=== PATIENT | male | born 1945 | race Caucasian/White ===

== ENCOUNTER 2021-06-10 10:31 | Emergency (ER) | payer OTHER ==
[2021-06-10] MEDS ORDERED: FENTANYL CITR 100 MCG/2 ML ONE (11:23)
--- NOTE | 2021-06-10 12:17 | RAD REPORT ---
EXAM DESCRIPTION: RAD - Chest Single View - 06/10/2021 11:34 am CLINICAL HISTORY: edema COMPARISON: No comparisons FINDINGS: Lines: None. Lungs: No evidence of edema or pneumonia. Pleural: No significant pleural effusions or pneumothorax. Cardiac: The heart size is within normal limits. Bones: No acute fractures. Other: IMPRESSION: No acute cardiopulmonary disease.
--- NOTE | 2021-06-10 12:28 | RAD REPORT ---
EXAM DESCRIPTION: USExtremity Venous Uni Ltd06/10/2021 12:17 pm CLINICAL HISTORY: Right leg pain and swelling. COMPARISON: None. FINDINGS: Right common femoral, superficial femoral, popliteal and right posterior tibial veins are compressible and demonstrate augmentation. Doppler demonstrates good flow. 4.3 x 2 centimeter right inguinal lymph node IMPRESSION: No evidence of deep venous thrombosis involving the right lower extremity. 4.3 x 2 centimeter right inguinal lymph node probably reactive in nature. Follow up ultrasound in 1 m [facility] recommended
[2021-06-10 12:35] LABS: Absolute Lymphocytes (CBC) 2.9 K/uL (0.7-4.9); Basophils % 1.3 % (0-1.3); Hematocrit 36.7 % (39.6-49.0); Lymphocytes % 26.4 % (15.3-44.8); MPV 8.3 fL (7.6-11.3); RBC Red Blood Cell Count 4.53 M/uL (4.33-5.43)
[2021-06-10 12:39] LABS: Protime INR 1.08
--- NOTE | 2021-06-10 12:46 | RAD REPORT ---
EXAM DESCRIPTION: US - Lower Extremity Artery Uni Ltd - 06/10/2021 12:18 pm CLINICAL HISTORY: Leg pain COMPARISON: None FINDINGS: The right common femoral arterial waveform triphasic. The right superficial femoral arterial waveform biphasic. Right popliteal arterial waveform triphasic. The posterior tibial and dorsalis pedis arteries demonstrate monophasic waveform. IMPRESSION: Mild to moderate very distal arterial disease right lower extremity
[2021-06-10 12:55] LABS: ALT/SGPT 39 U/L (12-78); AST/SGOT 17 U/L (15-37); Alkaline Phosphatase 309 U/L (45-117); BUN Blood Urea Nitrogen 6 mg/dL (7-18); Bicarbonate 28 mmol/L (21-32); Bilirubin Direct 0.2 mg/dL (0-0.2); Bilirubin Total 0.8 mg/dL (0.2-1.0); Glucose Level 95 mg/dL (74-106); Magnesium 2.2 mg/dL (1.8-2.4); NT PRO-BNP 70 pg/mL (<125); Potassium 4.2 mmol/L (3.5-5.1); Protein, Total 7.4 g/dL (6.4-8.2); Sodium Level 140 mmol/L (136-145); Troponin (Emerg Dept Use Only) < 0.02 ng/mL (0.0-0.045)
[2021-06-10] MEDS ORDERED: VANCOMYCIN 1 GM in NA CHLORIDE 0.9% 250 ML IVPB ONE (14:00)
[2021-06-10] MEDS ORDERED: PIPERACIL/TAZO 3.375 GM VIAL IV ONE (15:57)
[2021-06-10] MEDS ORDERED: NA CHLORIDE 0.9% 100 ML ONE (15:58)
--- NOTE | 2021-06-10 16:14 | ER ---
Nurse's Notes [facility] Name: Deandre Wilson Age: 75 yrs Sex: Male : 1945 Arrival Date: 06/10/2021 Time: 10:36 Bed 6 Private MD: Diagnosis: Cellulitis of right lower limb;Peripheral vascular disease, unspecified Presentation: 06/10 10:43 Chief complaint: Spouse and/or significant other states: patient has had lower right ap3 swelling for approx one week. It is reported that the patient has been complaining of a burning pain, and that there is significant draining that accompanies the wound. Coronavirus screen: At this time, the client does not indicate any symptoms associated with coronavirus-19. Ebola Screen: No symptoms or risks identified at this time. Initial Sepsis Screen: Does the patient meet any 2 criteria? No. Patient's initial sepsis screen is negative. Does the patient have a suspected source of infection? No. Patient's initial sepsis screen is negative. Risk Assessment: Do you want to hurt yourself or someone else? Patient reports no desire to harm self or others. Onset of symptoms was June 03, 2021. 10:43 Method Of Arrival: Wheelchair ap3 10:43 Acuity: ADDIE 3 ap3 Triage Assessment: 10:48 General: Appears in no apparent distress. Behavior is calm, cooperative. Pain: ap3 Complains of pain in right leg. Derm: Wound noted right lower leg. Historical: - Allergies: 10:46 No Known Allergies; ap3 - PMHx: 10:46 Dementia; Hypercholesterolemia; ap3 - Immunization history:: Client reports receiving the 2nd dose of the Covid vaccine. - Social history:: Smoking status: Patient reports the use of cigarette tobacco products, smokes one pack cigarettes per day. Screenin:54 Abuse screen: Denies threats or abuse. Nutritional screening: No deficits noted. ll3 Tuberculosis screening: No symptoms or risk factors identified. Fall Risk Secondary diagnosis (15 points) dementia, IV access (20 points). Mental Status- Overestimates/Forgets Limitations (15 pts.). Total Jordan Fall Scale indicates High Risk Score (45 or more points). Assessment: 11:54 General: Appears in no apparent distress. comfortable, Behavior is calm, cooperative. ll3 Pain: Complains of pain in right leg Pain began 4-5 days ago, started getting worse yesterday Is continuous, Unable to use pain scale. Patient is disoriented. Neuro: Level of Consciousness is awake, alert, obeys commands, confused, Oriented to person, place, Speech is normal, Facial symmetry appears normal. Cardiovascular: Patient's skin is warm and dry. Respiratory: Respiratory effort is even, unlabored, Respiratory pattern is regular, symmetrical. Derm: Skin has lesions on right lower leg Skin is red, Wound noted right leg Yellow dranage from wound to right lower leg Parent/caregiver reports the patient having burning, pain since 4-5 days ago. 12:38 Reassessment: No changes from previously documented assessment. Patient and/or family ll1 updated on plan of care and expected duration. Pain level reassessed. 13:40 Reassessment: Patient appears in no apparent distress at this time. No changes from ll3 previously documented assessment. Patient and/or family updated on plan of care and expected duration. Pain level reassessed. Patient is alert, oriented x 3, equal unlabored respirations, skin warm/dry/pink. 14:37 Reassessment: Patient appears in no apparent distress at this time. No changes from ll3 previously documented assessment. Patient and/or family updated on plan of care and expected duration. Pain level reassessed. Patient is alert, oriented x 3, equal unlabored respirations, skin warm/dry/pink. 15:40 Reassessment: Patient appears in no apparent distress at this time. No changes from ll3 previously documented assessment. Patient and/or family updated on plan of care and expected duration. Pain level reassessed. Patient is alert, oriented x 3, equal unlabored respirations, skin warm/dry/pink. 16:46 Reassessment: Patient appears in no apparent distress at this time. No changes from ll3 previously documented assessment. Patient and/or family updated on plan of care and expected duration. Pain level reassessed. Patient is alert, oriented x 3, equal unlabored respirations, skin warm/dry/pink. Vital Signs: 10:43 BP 102 / 58; Pulse 81; Resp 17; Temp 98.1; Pulse Ox 99% on R/A; Weight 79.38 kg; Height ap3 5 ft. 8 in. (172.72 cm); 13:00 BP 117 / 63; Pulse 80; Resp 17; Pulse Ox 100% on R/A; ll3 14:17 BP 109 / 58; Pulse 94; Resp 18; Pulse Ox 99% on R/A; ll3 15:30 BP 117 / 57; Pulse 90; Resp 17; Pulse Ox 98% on R/A; ll3 16:46 BP 111 / 64; Pulse 82; Resp 16; Pulse Ox 98% on R/A; ll3 10:43 Body Mass Index 26.61 (79.38 kg, 172.72 cm) ap3 ED Course: 10:36 Patient arrived in ED. rg4 10:46 Triage completed. ap3 10:48 Arm band placed on right wrist. ap3 10:49 Patient placed in an exam room, on a stretcher. ll1 11:04 Rolando Anderson PA is PHCP. cp 11:04 Rolando May MD is Attending Physician. cp 11:29 Kwame Cason, YOVANY is Primary Nurse. ll3 11:34 XRAY Chest (1 view) In Process Unspecified. EDMS 11:54 Patient has correct armband on for positive identification. Placed in gown. Bed in low ll3 position. Call light in reach. Side rails up X 1. Adult w/ patient. 12:14 US Extremity Venous Unilateral Ltd In Process Unspecified. EDMS 12:14 US LE Artery Uni Ltd In Process Unspecified. EDMS 12:24 Initial lab(s) drawn, by me, sent to lab. Inserted saline lock: 20 gauge in right dh3 antecubital area, using aseptic technique. Blood collected. 12:37 EKG completed in triage. Results shown to MD. ll1 14:15 initiated transfer to [facility]. bd 16:47 No provider procedures requiring assistance completed. ll3 16:49 Patient transferred, IV remains in place. No redness/swelling at site. ll3 Administered Medications: 12:36 Drug: fentaNYL (PF) 25 mcg {Note: rass 0.} Route: IVP; Site: right antecubital; ll1 13:10 Follow up: Response: No adverse reaction; Pain is decreased ll3 14:07 Drug: vancoMYCIN 1 grams Route: IVPB; Infused Over: 2 hrs; Site: right antecubital; ll3 16:10 Follow up: IV Status: Completed infusion; IV Intake: 250ml ll3 14:30 Drug: fentaNYL (PF) 25 mcg Route: IVP; Site: right antecubital; 3 15:00 Follow up: Response: No adverse reaction 3 16:13 Drug: Zosyn (piperacillin-tazobactam) 3.375 grams Route: IVPB; Infused Over: 60 mins; ll3 Site: right antecubital; 16:50 Follow up: IV Status: Infusion continued upon transfer ll3 Intake: 16:10 IV: 250ml; Total: 250ml. ll3 Outcome: 16:14 ER care complete, transfer ordered by MD. billings 16:48 Transferred by ground EMS to [facility] Transfer form completed. 3 16:48 Condition: stable 16:48 Discharge instructions given to family, EMS, Instructed on the need for transfer, Demonstrated understanding of instructions. 16:50 Patient left the ED. 3 Signatures: Dispatcher [employer] EDMS Liz Fonseca Corey, PA PA cp Garcia, Rubi 4 Betsy aPz 3 Anette Lopez RN RN ap3 Efrain Light RN RN ll1 Kwame Casno RN RN ll3
--- NOTE | 2021-06-10 16:14 | EDPHYS ---
Physician Documentation [facility] Name: Deandre Wilson Age: 75 yrs Sex: Male : 1945 Arrival Date: 06/10/2021 Time: 10:36 Bed 6 Private MD: CORY Physician Rolando May HPI: 06/10 11:30 This 75 yrs old Male presents to ER via Wheelchair with complaints of Foot Pain, Leg cp Swelling. 11:30 The patient presents with pain, that is acute, swelling, tenderness. The complaints cp affect the right lower leg. 11:30 Onset: The symptoms/episode began/occurred 1 week(s) ago. Associated signs and cp symptoms: Pertinent positives: warmth, Pertinent negatives fever. Patient with history of dementia. History obtained from son and . Family reports history of bypass surgery to right leg about 6 months ago by physician at [facility] in [place]. Patient developed wound on lateral side of lower leg. Family reports swelling, redness, and drainage from right lower leg for past 1 week. Historical: - Allergies: 10:46 No Known Allergies; ap3 - PMHx: 10:46 Dementia; Hypercholesterolemia; ap3 - Immunization history:: Client reports receiving the 2nd dose of the Covid vaccine. - Social history:: Smoking status: Patient reports the use of cigarette tobacco products, smokes one pack cigarettes per day. ROS: 11:35 Constitutional: Negative for body aches, chills, fever, poor PO intake. cp 11:35 Eyes: Negative for injury, pain, redness, and discharge. cp 11:35 ENT: Negative for ear pain, sore throat, difficulty swallowing, difficulty handling secretions. 11:35 Cardiovascular: Negative for chest pain, palpitations. 11:35 Respiratory: Negative for cough, shortness of breath, wheezing. 11:35 Abdomen/GI: Negative for abdominal pain, nausea, vomiting, and diarrhea. 11:35 MS/extremity: Positive for pain, of the right lower leg. 11:35 Skin: Positive for erythema, swelling, ulceration, of the right lower leg. 11:35 Neuro: Negative for altered mental status. 11:35 All other systems are negative. Exam: 11:40 Constitutional: The patient appears in no acute distress, alert, awake, cp non-diaphoretic, non-toxic, well developed, well nourished. 11:40 Head/Face: Normocephalic, atraumatic. cp 11:40 Eyes: Periorbital structures: appear normal, Conjunctiva: normal, no exudate, no injection, Lids and lashes: appear normal, bilaterally. 11:40 ENT: External ear(s): are unremarkable, Nose: is normal, Mouth: Lips: dry, Oral mucosa: moist, Posterior pharynx: Airway: no evidence of obstruction, patent. 11:40 Chest/axilla: Inspection: normal. 11:40 Cardiovascular: Rate: normal, Rhythm: regular, JVD: is not appreciated. 11:40 Respiratory: the patient does not display signs of respiratory distress, Respirations: normal, no use of accessory muscles, no retractions, labored breathing, is not present, Breath sounds: are clear throughout, no decreased breath sounds. 11:40 Abdomen/GI: Exam negative for discomfort, distension, guarding, Inspection: abdomen appears normal. 11:40 Musculoskeletal/extremity: Extremities: noted in the right lower leg: pain, swelling, tenderness, marked circumferential erythema, yellow colored drainage, silver dollar size ulcerated wound noted to lateral side, weak dorsalis pedis pulse of right lower leg. 11:40 Neuro: Orientation: no acute changes, per family, Mentation: no acute changes, per family. 12:35 ECG was reviewed by the Attending Physician. cp Vital Signs: 10:43 BP 102 / 58; Pulse 81; Resp 17; Temp 98.1; Pulse Ox 99% on R/A; Weight 79.38 kg; Height ap3 5 ft. 8 in. (172.72 cm); 13:00 BP 117 / 63; Pulse 80; Resp 17; Pulse Ox 100% on R/A; ll3 14:17 BP 109 / 58; Pulse 94; Resp 18; Pulse Ox 99% on R/A; ll3 15:30 BP 117 / 57; Pulse 90; Resp 17; Pulse Ox 98% on R/A; ll3 16:46 BP 111 / 64; Pulse 82; Resp 16; Pulse Ox 98% on R/A; ll3 10:43 Body Mass Index 26.61 (79.38 kg, 172.72 cm) ap3 MDM: 11:07 Patient medically screened. allyn 12:00 Differential diagnosis: cellulitis, abscess, arterial blockage, DVT, sepsis. cp 14:00 Data reviewed: vital signs, nurses notes, lab test result(s), EKG, radiologic studies, cp plain films, ultrasound. 14:00 Test interpretation: by ED physician or midlevel provider: ECG, plain radiologic cp studies. Counseling: I had a detailed discussion with the patient and/or guardian regarding: the historical points, exam findings, and any diagnostic results supporting the discharge/admit diagnosis, lab results, radiology results, the need to transfer to another facility, [facility] does not immediately have the required specialist. 06/10 11:21 Order name: Basic Metabolic Panel cp 06/10 11:21 Order name: CBC with Diff cp 06/10 11:21 Order name: LFT's cp 06/10 11:21 Order name: Magnesium cp 06/10 11:21 Order name: NT PRO-BNP; Complete Time: 12:57 cp 06/10 11:21 Order name: PT-INR; Complete Time: 12:57 cp 06/10 11:21 Order name: Troponin (emerg Dept Use Only); Complete Time: 12:57 cp 06/10 11:21 Order name: Wound Culture cp 06/10 11:21 Order name: Procalcitonin; Complete Time: 13:33 cp 06/10 13:33 Interpretation: Reviewed. cp 06/10 11:21 Order name: Lactate; Complete Time: 13:33 cp 06/10 13:33 Interpretation: Reviewed. cp 06/10 11:21 Order name: Basic Metabolic Panel; Complete Time: 12:57 EDMS 06/10 12:57 Interpretation: Normal except: BUN 6. cp 06/10 11:21 Order name: CBC with Automated Diff; Complete Time: 12:57 EDMS 06/10 12:57 Interpretation: Normal except: HGB 12.1; HCT 36.7; MCH 26.7; PLT 419. cp 06/10 11:21 Order name: Liver (Hepatic) Function; Complete Time: 12:57 EDMS 06/10 11:21 Order name: Magnesium; Complete Time: 12:57 EDMS 06/10 11:21 Order name: US Extremity Venous Unilateral Ltd; Complete Time: 12:57 cp 06/10 11:21 Order name: US LE Artery Uni Ltd; Complete Time: 12:57 cp 06/10 13:36 Interpretation: Report reviewed. cp 06/10 11:21 Order name: XRAY Chest (1 view); Complete Time: 12:57 cp 06/10 11:21 Order name: EKG; Complete Time: 11:22 cp 06/10 11:21 Order name: Cardiac monitoring; Complete Time: 12:17 cp 06/10 11:21 Order name: EKG - Nurse/Tech; Complete Time: 12:17 cp 06/10 11:21 Order name: IV Saline Lock; Complete Time: 11:57 cp 06/10 11:21 Order name: Labs collected and sent; Complete Time: 11:57 cp 06/10 11:21 Order name: O2 Per Protocol; Complete Time: 11:57 cp 06/10 11:21 Order name: O2 Sat Monitoring; Complete Time: 11:56 cp 06/10 13:20 Order name: COVID-19 SARS RT PCR (Document "Date of Onset" if Symptomatic) bd 06/10 13:44 Order name: Wound dressing; Complete Time: 14:15 cp EC:35 Rate is 74 beats/min. Rhythm is regular. OH interval is normal. QRS interval is normal. cp QT interval is normal. T waves are Inverted in lead aVR. Interpreted by me. Reviewed by me. Administered Medications: 12:36 Drug: fentaNYL (PF) 25 mcg {Note: rass 0.} Route: IVP; Site: right antecubital; ll1 13:10 Follow up: Response: No adverse reaction; Pain is decreased ll3 14:07 Drug: vancoMYCIN 1 grams Route: IVPB; Infused Over: 2 hrs; Site: right antecubital; ll3 16:10 Follow up: IV Status: Completed infusion; IV Intake: 250ml ll3 14:30 Drug: fentaNYL (PF) 25 mcg Route: IVP; Site: right antecubital; ll3 15:00 Follow up: Response: No adverse reaction ll3 16:13 Drug: Zosyn (piperacillin-tazobactam) 3.375 grams Route: IVPB; Infused Over: 60 mins; ll3 Site: right antecubital; 16:50 Follow up: IV Status: Infusion continued upon transfer ll3 Disposition: 18:53 Co-signature as Attending Physician, Rolando May MD I agree with the assessment and allyn plan of care. Disposition Summary: 06/10/21 16:14 Transfer Ordered Transfer Location: [facility] cp Reason: Higher level of care cp Condition: Fair cp Problem: new cp Symptoms: are unchanged cp Accepting Physician: DR Nithya Knox(06/10/21 16:50) ll3 Diagnosis - Cellulitis of right lower limb cp - Peripheral vascular disease, unspecified cp Discharge Instructions: - Discharge Summary Sheet ll3 Forms: - Medication Reconciliation Form cp - SBAR form ll3 Signatures: Dispatcher [employer] EDRolando Ge MD MD cha Page, Corey, PA PA cp Prokisch, Amanda, RN RN ap3 Efrain Light RN RN ll1 Kwame Cason RN RN ll3 Corrections: (The following items were deleted from the chart) 16:50 16:14 DR Nithya Knox cp ll3
[2021-06-10 16:58] VITALS: TEMP 98.1
[2021-06-10 17:02] VITALS: O2SAT 98
[2021-06-10 17:05] VITALS: BP 111/64
== END 2021-06-10 16:50 ==
LOC: ER 10:31
DX: L03.115 Cellulitis of right lower limb (principal); I73.9 Peripheral vascular disease, unspecified; F03.90 Unspecified dementia, unspecified severity, without behavioral disturbance, psychotic disturbance, mood disturbance, and anxiety; F17.210 Nicotine dependence, cigarettes, uncomplicated; Z20.822 Contact with and (suspected) exposure to COVID-19
CPT/HCPCS: 96365; 96367; 93005; 87070; 85025; 80048; 36415; 83735; 87205; 85610; 80076; 83605; 87077 ×2; 87186 ×2; 84484; 84145; 83880; 71045; 93926; 93971; 96375; 99285; 96366; U0003; J2543; J3010; J3370; J7050